=== PATIENT | female | born 1950 ===

== ENCOUNTER 2022-07-18 13:09 | Day surgery (SDC) | payer MEDICARE ==
[~2022-07-18] VITALS: Ht 154.9 cm; Wt 95.2 kg
[2022-07-18] MEDS ORDERED: BASAGLAR K100 UNIT/1 SC (13:40)
[2022-07-18] MEDS ORDERED: AMLO10 PO (13:40)
[2022-07-18] MEDS ORDERED: ALEN70 PO (13:40)
[2022-07-18] MEDS ORDERED: ATOR40TA PO (13:40)
[2022-07-18] MEDS ORDERED: HYDCHL50 PO (13:41)
[2022-07-18] MEDS ORDERED: GLIM2 PO (13:41)
[2022-07-18] MEDS ORDERED: REPA2 PO (13:42)
--- NOTE | 2022-07-18 13:49 | NUR ---
07/18/22 1349 [place] Day CALL LIGHT WITHIN REACH. TETRACAINE IN RIGHT EYE AT 1345 AND PLEDGETT IN AT 1348
[2022-07-18 15:21] VITALS: BP 143/66
== END 2022-07-18 15:17 | disposition home or self-care (01) ==
LOC: ORSCSDS 13:09
PROVIDERS: Ophthalmology
PROC: 08DJ3ZZ Extraction of Right Lens, Percutaneous Approach (ICD-10-PCS; principal; 2022-07-18 14:30)
PROC: 08923ZZ Drainage of Right Anterior Chamber, Percutaneous Approach (ICD-10-PCS; principal; 2022-07-18 14:30)
DX: E11.36 Type 2 diabetes mellitus with diabetic cataract (principal); H25.11 Age-related nuclear cataract, right eye; H40.1131 Primary open-angle glaucoma, bilateral, mild stage; E11.319 Type 2 diabetes mellitus with unspecified diabetic retinopathy without macular edema; E66.9 Obesity, unspecified; Z68.39 Body mass index [BMI] 39.0-39.9, adult; Z87.891 Personal history of nicotine dependence; I10 Essential (primary) hypertension; Z79.4 Long term (current) use of insulin; Z79.899 Other long term (current) drug therapy
CPT/HCPCS: 82947; J2001; J2250; J3010; J3301; J7040; V2632

== ENCOUNTER 2022-07-25 13:25 | Day surgery (SDC) | payer MEDICARE ==
[~2022-07-25] VITALS: Ht 154.9 cm; Wt 95.0 kg
[~2022-07-25 13:25] MED LIST: ALEN70 PO; AMLO10 PO; ATOR40TA PO; BASAGLAR K100 UNIT/1 SC; GLIM2 PO; HYDCHL50 PO; REPA2 PO
--- NOTE | 2022-07-25 13:54 | NUR ---
07/25/22 Sapphire Galvez CALL LIGHT WITHIN REACH.
--- NOTE | 2022-07-25 15:09 | NUR ---
07/25/22 1509 ELIAN ESTES AND SARAH LORENZO STUDENT NURSES ASSISTING WITH CARE.
[2022-07-25 15:11] VITALS: BP 137/68
== END 2022-07-25 15:31 | disposition home or self-care (01) ==
LOC: ORSCSDS 13:25
PROVIDERS: Ophthalmology
PROC: 08RK3JZ Replacement of Left Lens with Synthetic Substitute, Percutaneous Approach (ICD-10-PCS; principal; 2022-07-25 14:30)
PROC: 08933ZZ Drainage of Left Anterior Chamber, Percutaneous Approach (ICD-10-PCS; principal; 2022-07-25 14:30)
DX: E11.36 Type 2 diabetes mellitus with diabetic cataract (principal); H25.12 Age-related nuclear cataract, left eye; H35.30 Unspecified macular degeneration; E11.319 Type 2 diabetes mellitus with unspecified diabetic retinopathy without macular edema; H40.1121 Primary open-angle glaucoma, left eye, mild stage; Z96.1 Presence of intraocular lens; I10 Essential (primary) hypertension; E66.9 Obesity, unspecified; Z68.39 Body mass index [BMI] 39.0-39.9, adult; Z79.84 Long term (current) use of oral hypoglycemic drugs; Z79.899 Other long term (current) drug therapy
CPT/HCPCS: 82947; J2250; J3010; J3301; J7040; V2632

== ENCOUNTER → 2024-01-16 | Outpatient (CLI) | payer MEDICARE ==
[2024-01-16 13:41] LABS: Creatinine, Urine Random 47.3 mg/dL (27.00-270.00); Microalb/Creat Ratio UR, Rand 158.774 mg/g (0.000-30.000); Microalbumin, Random Urine 75.1 mg/L (0.000-20.000)
== END | disposition home or self-care (01) ==
LOC: LAB 09:20 → LAB SHORT 09:20
PROVIDERS: Nurse Practitioner Family
DX: E11.40 Type 2 diabetes mellitus with diabetic neuropathy, unspecified (principal); E11.65 Type 2 diabetes mellitus with hyperglycemia
CPT/HCPCS: 82043; 82570